=== PATIENT | female | born 1970 | race Caucasian/White ===

== ENCOUNTER → 2016-04-14 | Outpatient (CLI) | payer MEDICAID ==
--- NOTE | 2016-04-15 13:08 | MM ---
Reason for exam: screening (asymptomatic). Last mammogram was performed 3 years and 2 months ago. History: Patient has history of high-risk lesion on a previous biopsy at age 39. Family history of breast cancer in maternal aunt at age 50. High risk left breast needle localization of the left breast, May 09, 2011. High risk left breast needle localization of the left breast, May 09, 2011. High risk left mammotome panel of the left breast, April 26, 2011. High risk left mammotome panel of the left breast, April 26, 2011. Physical Findings: A clinical breast exam by your physician is recommended on an annual basis and results should be correlated with mammographic findings. MG 3D Screening Mammo W/Cad Bilateral CC and MLO view(s) were taken. Prior study comparison: February 04, 2013, CAD bilateral diagnostic mammogram. April 11, 2011, [facility] DIGITAL LEFT BREAST MAMMOGRAM w/CAD. March 31, 2011, bilateral digital screening mammo w/CAD. The breast tissue is heterogeneously dense. This may lower the sensitivity of mammography. Finding: There is a 4 mm round mass in the upper outer quadrant, anterior position of the right breast. Stable distortion left breast upper outer quadrant. New finding since February 04, 2013. ASSESSMENT: Incomplete: need additional imaging evaluation, BI-RAD 0 RECOMMENDATION: Ultrasound of the right breast. [facility] will attempt to contact patient to return for ultrasound.
== END | disposition home or self-care (01) ==
LOC: RADMAMWWP 15:11
PROVIDERS: ATTEND Family Medicine
DX: Z12.31 Encounter for screening mammogram for malignant neoplasm of breast (principal)
CPT/HCPCS: 77063; G0202

== ENCOUNTER → 2016-04-26 | Outpatient (CLI) | payer MEDICAID ==
--- NOTE | 2016-04-26 09:51 | USB ---
Reason for exam: additional evaluation requested from abnormal screening. History: Patient has history of high-risk lesion on a previous biopsy at age 39. Family history of breast cancer in maternal aunt at age 50. High risk left breast needle localization of the left breast, May 09, 2011. High risk left breast needle localization of the left breast, May 09, 2011. High risk left mammotome panel of the left breast, April 26, 2011. High risk left mammotome panel of the left breast, April 26, 2011. Physical Findings: Nurse did not find any significant physical abnormalities on exam. US Breast Workup Limited RT Right breast ultrasound demonstrates a 0.4 x 0.3 x 0.2cm oval, cystic lesion at 9 o'clock, a 0.3 x 0.2 x 0.1cm oval lesion too small to characterize at 10 o'clock and a 0.3 x 0.2 x 0.2cm oval lesion too small to characterize at 12 o'clock. All consistent with fibrocystic change. These results were verbally communicated with the patient and result sheet given to the patient on 04/26/16. ASSESSMENT: Benign, BI-RAD 2 RECOMMENDATION: Return to routine screening mammogram schedule for both breasts.
== END | disposition home or self-care (01) ==
LOC: RADUSWWP 08:20
PROVIDERS: ATTEND Family Medicine
DX: R92.8 Other abnormal and inconclusive findings on diagnostic imaging of breast (principal)

== ENCOUNTER 2016-08-27 11:24 | Emergency (ER) | payer MEDICAID, OTHER ==
[2016-08-27 11:31] VITALS: BP 100/51; PULSE 70; RESP 20; TEMP 98
--- NOTE | 2016-08-27 11:44 | ED ---
General Adult HPI - General Chief complaint: Extremity Injury, Upper Stated complaint: [facility]HS Rt arm injury Time Seen by Provider: 08/27/16 11:33 Source: patient, RN notes reviewed Mode of arrival: ambulatory Limitations: no limitations - History of Present Illness Initial comments: Patient is a 46-year-old female who presents emergency room today with a chief complaint of an injury to the right wrist. 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 She does admit that it's worse with flexion and extension of the distal right radius. She denies any other complaints or symptoms at this time. Patient denies any recent fever, chills, shortness of breath, chest pain, back pain, abdominal pain, nausea or vomiting, dysuria or hematuria, constipation or diarrhea, headaches or visual changes, or any other complaints. - Related Data Home Medications Medication Instructions Recorded Confirmed Ibuprofen [Motrin] 800 mg PO TID PRN 12/15/15 08/27/16 Amoxic-Pot Clav 875-125Mg 1 tab PO Q12HR 08/27/16 08/27/16 [Augmentin 875-125] Previous Rx's Medication Instructions Recorded Rizatriptan Benzoate [Maxalt] 5 mg PO Q2HR PRN #15 tablet 12/15/15 Naproxen [Naprosyn] 500 mg PO Q12HR #20 tab 08/27/16 Allergies Allergy/AdvReac Type Severity Reaction Status Date / Time adhesive Allergy BLISTERS Verified 08/27/16 12:17 nalbuphine HCl [From Nubain] AdvReac Severe TACHYCARDIA Verified 08/27/16 12:17 Review of Systems ROS Statement: Those systems with pertinent positive or pertinent negative responses have been documented in the HPI. ROS Other: All systems not noted in ROS Statement are negative. Past Medical History Past Medical History: Cancer, COPD, Neurologic Disorder Additional Past Medical History / Comment(s): LUNG CA (2009). MIGRAINES. BRONCHITIS. UTERINE FIBROIDS. SKIN CANCER (1997) History of Any Multi-Drug Resistant Organisms: MRSA Date of last positivie culture/infection: 08/23/11 MDRO Source:: RIGHT UPPER THIGH Past Surgical History: Adenoidectomy, Breast Surgery, Orthopedic Surgery, Tonsillectomy, Tubal Ligation, Uterine Ablation Additional Past Surgical History / Comment(s): LEFT PNEUMONECTOMY (2010). BIOPSY LEFT BREAST (2011). LEFT WRIST TENDON REPAIR. Past Anesthesia/Blood Transfusion Reactions: No Reported Reaction Past Psychological History: Anxiety Smoking Status: Former smoker Past Alcohol Use History: Occasional Past Drug Use History: None Reported - Past Family History Mother Family Medical History: No Reported History General Exam - General Exam Comments Initial Comments: General: The patient is awake and alert, in no distress, and does not appear acutely ill. Neck: The neck is supple, there is no tenderness or JVD. Cardiovascular: There is a regular rate and rhythm. No murmur, rub or gallop is appreciated. Respiratory: Lungs are clear to auscultation, respirations are non-labored, breath sounds are equal. No wheezes, stridor, rales, or rhonchi. Musculoskeletal: Normal appearance the right wrist no obvious deformity. Shows good range of motion all directions. Sensations intact with pulses equal bilaterally 2+. Strength 4/5 due to pain with flexion and extension at the right wrist. No bony tenderness down to the hand or the right elbow. Mild tenderness of the distal right radius. No snuffbox tenderness. Neurological: A&O x 3. CN II-XII intact, There are no obvious motor or sensory deficits. Coordination appears grossly intact. Speech is normal. Skin: Skin is warm and dry and no rashes or lesions are noted. Psychiatric: Normal mood and affect. Limitations: no limitations Course Vital Signs 08/27/16 11:29 Temperature 98.0 F Pulse Rate 70 Respiratory 20 Rate Blood Pressure 100/51 O2 Sat by Pulse 99 Oximetry Medical Decision Making - Medical Decision Making Patient examined at this time shows no signs of distress. X-rays are negative for any acute fracture dislocation. Results were discussed with the patient. Patient will be placed in Dario wrap advised not to sleep with a non-perfusing when she is up moving around for compression and to help with discomfort. Advised to follow-up with the family doctor or orthopedics in 7-10 days for repeat x-rays. Advised to ice elevate and use anti-inflammatories for pain. Disposition Clinical Impression: Wrist sprain Disposition: HOME SELF-CARE Condition: Good Instructions: Wrist Sprain (ED) Additional Instructions: Please use medication as discussed. Please follow-up with family doctor in the next 7-10 days of symptoms have not improved. Please return to emergency room if the symptoms increase or worsen or for any other concerns. Prescriptions: Naproxen [Naprosyn] 500 mg PO Q12HR #20 tab Referrals: Andrea Heath MD [Primary Care Provider] - 1-2 days Time of Disposition: 12:31
--- NOTE | 2016-08-27 12:18 | XR ---
EXAMINATION TYPE: XR wrist complete RT DATE OF EXAM: 08/27/2016 COMPARISON: NONE HISTORY: Pain TECHNIQUE: Four views submitted. FINDINGS: The osseous structures are intact. The joint spaces are preserved and there is no acute fracture or dislocation. IMPRESSION: 1. No definite acute fracture or dislocation if symptoms persist, follow-up study in 7 to 10 days wo uld be suggested .
[2016-08-27] MEDS ORDERED: NAPROXEN 250 MG TAB PO STA (12:21)
== END 2016-08-27 12:46 | disposition home or self-care (01) ==
LOC: EC 11:24
DX: S63.501A Unspecified sprain of right wrist, initial encounter (principal); Z87.891 Personal history of nicotine dependence; Z91.048 Other nonmedicinal substance allergy status; Z88.8 Allergy status to other drugs, medicaments and biological substances; Z85.828 Personal history of other malignant neoplasm of skin; Z85.118 Personal history of other malignant neoplasm of bronchus and lung; X50.9XXA Other and unspecified overexertion or strenuous movements or postures, initial encounter; Y92.69 Other specified industrial and construction area as the place of occurrence of the external cause; Y99.0 Civilian activity done for income or pay
CPT/HCPCS: 99283

== ENCOUNTER → 2017-11-09 | Outpatient (CLI) | payer MEDICAID ==
--- NOTE | 2017-11-09 18:41 | CT ---
EXAMINATION TYPE: CT brain w con DATE OF EXAM: 11/09/2017 COMPARISON: HISTORY: Recent headaches. Follow up for carcinoid tumor. CT DLP: 1003.1 mGycm Automated exposure control for dose reduction was used. CONTRAST: CT scan of the head is performed with IV Contrast, patient injected with 100ml mL of Isovue M300. FINDINGS: The ventricles and sulci appear normal. There is no mass effect nor midline shift. There is no sign o f intracranial hemorrhage. There is no pathologic enhancement. The calvarium appears intact. IMPRESSION: Negative CT scan of the brain. No change.
--- NOTE | 2017-11-10 08:13 | CT ---
EXAMINATION TYPE: CT ChestAbdPelvis w con DATE OF EXAM: 11/09/2017 COMPARISON: 01/08/2014 and 01/16/2013 HISTORY: Recent headaches. Follow up for carcinoid tumor. CT DLP: 565.9 mGycm CONTRAST: CT scan of the chest, abdomen and pelvis is performed with Oral Contrast and with IV Contrast, patien t injected with 100ml mL of Isovue M300. CT Chest: LUNGS: Left-sided pneumonectomy changes are stable. Mediastinal shift from right to left. Hyperinflat ion of the right lung. MEDIASTINUM: Thoracic aorta is of normal caliber. The heart is not enlarged. No evidence for media stinal mass or adenopathy. HILAR STRUCTURES: No evidence for mass. No hilar adenopathy is appreciated. OTHER: No significant abnormality. CONTRAST CT ABDOMEN AND PELVIS FINDINGS: LIVER/GB: No calcified gallstones. No space occupying hepatic lesion. Biliary tree is of normal ca liber. PANCREAS: No inflammation. No distinct mass. SPLEEN: No splenic enlargement. No lesion seen. ADRENALS: No nodule. No thickening. KIDNEYS/BLADDER: No hydronephrosis. No nephrolithiasis. No disctinct renal mass. BOWEL: Normal appendix. Normal bowel caliber. No inflammation. GENITAL ORGANS: No gross abnormality. LYMPH NODES: No greater than 1cm abdominal or pelvic lymph nodes are appreciated. AORTA: No significant abnormality. OSSEOUS STRUCTURES: No significant abnormality is seen. OTHER: No significant additional abnormality is seen. IMPRESSION: 1. Stable left-sided pneumonectomy change. 2. No evidence for recurrent or residual disease. No evidence for metastatic disease.
== END | disposition home or self-care (01) ==
LOC: RADCTMAIN 15:32
PROVIDERS: ATTEND Internal Medicine Hematology & Oncology
DX: C7A.098 Malignant carcinoid tumors of other sites (principal); R51 Headache; Z90.2 Acquired absence of lung [part of]
CPT/HCPCS: 70460; 71260; 74177; Q9967

== ENCOUNTER → 2018-05-15 | Outpatient (CLI) | payer MEDICAID ==
--- NOTE | 2018-05-15 20:55 | CT ---
EXAMINATION TYPE: CT abdomen pelvis wo con DATE OF EXAM: 05/15/2018 COMPARISON: HISTORY: Right upper quadrant pain x 4 days. History of lung cancer. CT DLP: 400.5 mGycm Automated exposure control for dose reduction was used. TECHNIQUE: Helical acquisition of images was performed from the lung bases through the pelvis. FINDINGS: Within the limitations of noncontrast CT the following observations are made: LUNG BASES: Postoperative changes noted. No significant abnormality is appreciated. LIVER/GB: No significant abnormality is appreciated. PANCREAS: No significant abnormality is seen. SPLEEN: No significant abnormality is seen. ADRENALS: No significant abnormality is seen. KIDNEYS: No significant abnormality is seen. FREE AIR: No free air is visualized RETROPERITONEAL ADENOPATHY: None visualized REPRODUCTIVE ORGANS: No significant abnormality is seen URINARY BLADDER: No significant abnormality is seen. PELVIC ADENOPATHY: None visualized. OSSEOUS STRUCTURES: No significant abnormality is seen. BOWEL: There is no bowel obstruction. However, excessive pancolonic stool volume is noted. IMPRESSION: CONSTIPATION; NO OTHER FINDINGS.
== END | disposition home or self-care (01) ==
LOC: LABMAIN 17:59
PROVIDERS: ATTEND Family Medicine
DX: K59.00 Constipation, unspecified (principal)
CPT/HCPCS: 74176

== ENCOUNTER 2019-02-16 10:30 | Inpatient (IN) | payer MEDICAID ==
[2019-02-16] MEDS ORDERED: methylPREDNISolone SOD SUCCI 125 MG/2 ML VIAL IV STA (11:11)
[2019-02-16] MEDS ORDERED: SODIUM CHLORIDE 0.9% 1,000 ML IV STA (11:11)
[2019-02-16] MEDS ORDERED: IPRATROPIUM-ALBUTEROL 3 ML NEB INHALATION STA ×3 (11:11→14:01)
--- NOTE | 2019-02-16 11:18 | ED ---
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 She presents today with complaints of increasing shortness of breath and exertional dyspnea she has a cough with sometimes clear sometimes green sometimes yellow phlegm. No overt fevers chills or sweats no chest pain. Her medications are not helping. MD Complaint: shortness of breath, cough - Related Data Home Medications Medication Instructions Recorded Confirmed Ibuprofen [Motrin] 800 mg PO TID PRN 12/15/15 08/27/16 Amoxic-Pot Clav 875-125Mg 1 tab PO Q12HR 08/27/16 08/27/16 [Augmentin 875-125] Previous Rx's Medication Instructions Recorded Rizatriptan Benzoate [Maxalt] 5 mg PO Q2HR PRN #15 tablet 12/15/15 Naproxen [Naprosyn] 500 mg PO Q12HR #20 tab 08/27/16 Allergies Allergy/AdvReac Type Severity Reaction Status Date / Time adhesive Allergy BLISTERS Verified 02/16/19 10:37 nalbuphine HCl [From Nubain] AdvReac Severe TACHYCARDIA Verified 02/16/19 10:37 Review of Systems ROS Statement: Those systems with pertinent positive or pertinent negative responses have been documented in the HPI. ROS Other: All systems not noted in ROS Statement are negative. Past Medical History Past Medical History: Cancer, COPD, Neurologic Disorder Additional Past Medical History / Comment(s): LUNG CA (2009). MIGRAINES. BRONCHITIS. UTERINE FIBROIDS. SKIN CANCER (1997) History of Any Multi-Drug Resistant Organisms: MRSA Date of last positivie culture/infection: 08/23/11 MDRO Source:: RIGHT UPPER THIGH Past Surgical History: Adenoidectomy, Breast Surgery, Orthopedic Surgery, Tonsillectomy, Tubal Ligation, Uterine Ablation Additional Past Surgical History / Comment(s): LEFT PNEUMONECTOMY (2009). BIOPSY LEFT BREAST (2010). LEFT WRIST TENDON REPAIR. Past Anesthesia/Blood Transfusion Reactions: No Reported Reaction Past Psychological History: Anxiety Smoking Status: Former smoker Past Alcohol Use History: Occasional Past Drug Use History: None Reported - Past Family History Mother Family Medical History: No Reported History General Exam - General Exam Comments Initial Comments: This is a well-developed well-nourished awake alert oriented 3 female Limitations: no limitations General appearance: alert, anxious, in distress Head exam: Present: atraumatic, normocephalic, normal inspection Eye exam: Present: normal appearance, PERRL, EOMI. Absent: scleral icterus, conjunctival injection, periorbital swelling ENT exam: Present: normal exam, mucous membranes moist Neck exam: Present: normal inspection, full ROM, other (No stridor JVD or bruits). Absent: tenderness, meningismus, lymphadenopathy Respiratory exam: Present: wheezes, accessory muscle use, decreased breath sounds. Absent: respiratory distress, rales, rhonchi, stridor Cardiovascular Exam: Present: regular rate, normal rhythm, normal heart sounds. Absent: systolic murmur, diastolic murmur, rubs, gallop, clicks GI/Abdominal exam: Present: soft, normal bowel sounds. Absent: distended, tenderness, guarding, rebound, rigid Extremities exam: Present: normal inspection, full ROM, normal capillary refill. Absent: tenderness, pedal edema, joint swelling, calf tenderness Back exam: Present: normal inspection Neurological exam: Present: alert, oriented X3, CN II-XII intact Psychiatric exam: Present: normal affect, normal mood Skin exam: Present: warm, dry, intact, normal color. Absent: rash Course Vital Signs 02/16/19 02/16/19 02/16/19 10:37 11:22 11:32 Temperature 97.9 F Pulse Rate 86 75 79 Respiratory 18 Rate Blood Pressure 99/68 O2 Sat by Pulse 96 Oximetry 02/16/19 02/16/19 02/16/19 12:00 12:30 13:00 Temperature Pulse Rate 60 60 71 Respiratory 18 18 18 Rate Blood Pressure 103/63 98/64 100/66 O2 Sat by Pulse 98 94 L 97 Oximetry 02/16/19 02/16/19 13:48 14:00 Temperature Pulse Rate 86 81 Respiratory Rate Blood Pressure O2 Sat by Pulse Oximetry - Reevaluation(s) Reevaluation #1: 02/16/19 14:04 Reevaluation patient reveals no improvement thus far. Medical Decision Making - Medical Decision Making I did reevaluate patient several more occasions no improvement is noted. Patient will be requiring inpatient treatment for refractory COPD. I did discuss case with the patient as well as with Dr. Downey. Dr. Julien will be consulted. - Lab Data Result diagrams: 02/16/19 11:25 02/16/19 11:25 Lab Results 02/16/19 02/16/19 02/16/19 Range/Units 11:25 11:25 11:25 WBC 7.6 (3.8-10.6) k/uL RBC 4.18 (3.80-5.40) m/uL Hgb 14.0 (11.4-16.0) gm/dL Hct 39.4 (34.0-46.0) % MCV 94.3 (80.0-100.0) fL MCH 33.4 (25.0-35.0) pg MCHC 35.5 (31.0-37.0) g/dL RDW 12.8 (11.5-15.5) % Plt Count 236 (150-450) k/uL Neutrophils % 73 % Lymphocytes % 20 % Monocytes % 4 % Eosinophils % 2 % Basophils % 0 % Neutrophils # 5.5 (1.3-7.7) k/uL Lymphocytes # 1.6 (1.0-4.8) k/uL Monocytes # 0.3 (0-1.0) k/uL Eosinophils # 0.1 (0-0.7) k/uL Basophils # 0.0 (0-0.2) k/uL PT 10.2 (9.0-12.0) sec INR 0.9 (<1.2) APTT 25.2 (22.0-30.0) sec Sodium 142 (137-145) mmol/L Potassium 4.0 (3.5-5.1) mmol/L Chloride 107 (98-107) mmol/L Carbon Dioxide 27 (22-30) mmol/L Anion Gap 8 mmol/L BUN 7 (7-17) mg/dL Creatinine 0.74 (0.52-1.04) mg/dL Est GFR (CKD-EPI)AfAm >90 (>60 ml/min/1.73 sqM) Est GFR (CKD-EPI)NonAf >90 (>60 ml/min/1.73 sqM) Glucose 96 (74-99) mg/dL Calcium 10.1 (8.4-10.2) mg/dL Magnesium 2.1 (1.6-2.3) mg/dL Total Bilirubin 0.5 (0.2-1.3) mg/dL AST 16 (14-36) U/L ALT 20 (9-52) U/L Alkaline Phosphatase 64 (38-126) U/L Creatine Kinase 30 (30-135) U/L Troponin I (0.000-0.034) ng/mL NT-Pro-B Natriuret Pep pg/mL Total Protein 7.7 (6.3-8.2) g/dL Albumin 4.4 (3.5-5.0) g/dL 02/16/19 02/16/19 Range/Units 11:25 11:25 WBC (3.8-10.6) k/uL RBC (3.80-5.40) m/uL Hgb (11.4-16.0) gm/dL Hct (34.0-46.0) % MCV (80.0-100.0) fL MCH (25.0-35.0) pg MCHC (31.0-37.0) g/dL RDW (11.5-15.5) % Plt Count (150-450) k/uL Neutrophils % % Lymphocytes % % Monocytes % % Eosinophils % % Basophils % % Neutrophils # (1.3-7.7) k/uL Lymphocytes # (1.0-4.8) k/uL Monocytes # (0-1.0) k/uL Eosinophils # (0-0.7) k/uL Basophils # (0-0.2) k/uL PT (9.0-12.0) sec INR (<1.2) APTT (22.0-30.0) sec Sodium (137-145) mmol/L Potassium (3.5-5.1) mmol/L Chloride (98-107) mmol/L Carbon Dioxide (22-30) mmol/L Anion Gap mmol/L BUN (7-17) mg/dL Creatinine (0.52-1.04) mg/dL Est GFR (CKD-EPI)AfAm (>60 ml/min/1.73 sqM) Est GFR (CKD-EPI)NonAf (>60 ml/min/1.73 sqM) Glucose (74-99) mg/dL Calcium (8.4-10.2) mg/dL Magnesium (1.6-2.3) mg/dL Total Bilirubin (0.2-1.3) mg/dL AST (14-36) U/L ALT (9-52) U/L Alkaline Phosphatase (38-126) U/L Creatine Kinase (30-135) U/L Troponin I <0.012 (0.000-0.034) ng/mL NT-Pro-B Natriuret Pep 159 pg/mL Total Protein (6.3-8.2) g/dL Albumin (3.5-5.0) g/dL - EKG Data -: EKG Interpreted by Me EKG shows normal: sinus rhythm EKG Comments: Sinus rhythm of 79. Interval 118 QRS duration 90 QT since QTC 34/440 right word axis nonspecific T-wave configuration - Radiology Data Radiology results: report reviewed (Imaging reveals no evidence of focal infiltrates. Postsurgical changes are consistent with a pneumonectomy are noted), image reviewed Critical Care Time Critical Care Time: Yes Critical Care Time: 36 minutes of critical care time which includes initial presentation with history physical labs x-rays review of old charting was available multiple re- evaluations the patient discussed with the patient regarding the findings discussion with the admitting physician admission orders and documentation of the above Disposition Clinical Impression: Acute exacerbation of chronic obstructive pulmonary disease, Acute respiratory distress syndrome in adult, Failure of outpatient treatment, History of pneumonectomy Disposition: ADMITTED IP TO THIS HOSP Condition: Fair Referrals: Andrea Heath MD [Primary Care Provider] - 1-2 days
[2019-02-16 11:48] LABS: Basophils % (A) 0 %; Eosinophils # (A) 0.1 k/uL (0-0.7); Eosinophils % (A) 2 %; HCT 39.4 % (34.0-46.0); Lymphocytes # (A) 1.6 k/uL (1.0-4.8); Lymphocytes % (A) 20 %; MCH 33.4 pg (25.0-35.0); MCHC 35.5 g/dL (31.0-37.0); MCV 94.3 fL (80.0-100.0); Mean Platelet Volume 7.3; Monocytes # (A) 0.3 k/uL (0-1.0); Monocytes % (A) 4 %; Neutrophils # (A) 5.5 k/uL (1.3-7.7); Neutrophils % (A) 73 %; Platelet Count 236 k/uL (150-450); RBC 4.18 m/uL (3.80-5.40); RDW 12.8 % (11.5-15.5); WBC 7.6 k/uL (3.8-10.6)
[2019-02-16 11:55] LABS: INR 0.9 (<1.2); Partial Thromboplastin Time 25.2 sec (22.0-30.0); Prothrombin Time 10.2 sec (9.0-12.0)
--- NOTE | 2019-02-16 12:09 | XR ---
EXAMINATION TYPE: XR chest 2V DATE OF EXAM: 02/16/2019 HISTORY: difficulty breathing. REFERENCE: Previous study dated 12/24/2015. FINDINGS: There is been a previous left pneumonectomy. Mediastinal structures are displaced towards t he left. There continues to be some aeration in the left upper lobe. This has increased from previous . The right lung is clear. IMPRESSION: 1. STATUS POST LEFT PNEUMONECTOMY. 2. 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
[2019-02-16 12:50] LABS: ALT 20 U/L (9-52); AST 16 U/L (14-36); African American GFR (CKD) >90 (>60 ml/min/1.73 sqM); Albumin 4.4 g/dL (3.5-5.0); Alkaline Phosphatase 64 U/L (38-126); Anion Gap 8 mmol/L; Blood Urea Nitrogen 7 mg/dL (7-17); Calcium 10.1 mg/dL (8.4-10.2); Carbon Dioxide 27 mmol/L (22-30); Chloride 107 mmol/L (98-107); Creatine Kinase 30 U/L (30-135); Glucose 96 mg/dL (74-99); Magnesium 2.1 mg/dL (1.6-2.3); Non-African American GFR(CKD) >90 (>60 ml/min/1.73 sqM); Sodium 142 mmol/L (137-145); Total Bilirubin 0.5 mg/dL (0.2-1.3); Total Protein 7.7 g/dL (6.3-8.2)
[2019-02-16] MEDS ORDERED: IBUPROFEN 800 MG TAB PO PRN (14:10)
[2019-02-16] MEDS ORDERED: SUMAtriptan SUCCINATE 50 MG TAB PO PRN (15:24)
--- NOTE | 2019-02-16 16:12 | P.HPIM ---
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 The patient reports complaints of URI symptoms such as chest congestion and runny nose and difficulty breathing 2 weeks ago for which she was seen in the clinic in [place] she was an IM shot of antibiotics and a Medrol Dosepak and likely a Z-David, the patient reported completing the course and initially felt better but then 2 days ago began having difficulty breathing again, she reports a intimately productive cough with yellow sputum, she reports increasing wheezes, she reports using her nebulizer several times yesterday without any improvement and also used her rescue inhaler this morning prior to going to work. 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 The patient reports being up-to-date with her flu shot and pneumonia vaccine In the ER showed a comprehensive workup, CBC CMP were largely unremarkable, chest x-ray showed increased aeration of the left hemothorax. EKG showed sinus mechanism with nonspecific T-wave abnormality. She was given 3 breathing treatments a loading dose of IV Solu-Medrol and then recommended for admission Review of Systems Pertinent positives per HPI, all other review of systems are otherwise negative Past Medical History Past Medical History: Cancer, COPD, Neurologic Disorder Additional Past Medical History / Comment(s): LUNG CA (2009). MIGRAINES. BRONCHITIS. UTERINE FIBROIDS. SKIN CANCER (1997) History of Any Multi-Drug Resistant Organisms: MRSA Date of last positivie culture/infection: 08/23/11 MDRO Source:: RIGHT UPPER THIGH Past Surgical History: Adenoidectomy, Breast Surgery, Orthopedic Surgery, Tonsillectomy, Tubal Ligation, Uterine Ablation Additional Past Surgical History / Comment(s): LEFT PNEUMONECTOMY (2009). BIOPSY LEFT BREAST (2010). LEFT WRIST TENDON REPAIR. Past Anesthesia/Blood Transfusion Reactions: No Reported Reaction Past Psychological History: Anxiety Smoking Status: Former smoker Past Alcohol Use History: Occasional Past Drug Use History: None Reported - Past Family History Mother Family Medical History: No Reported History Medications and Allergies Home Medications Medication Instructions Recorded Confirmed Type Budesonide/Formoterol Fumarate 2 puff INHALATION RT-BID 02/16/19 02/16/19 History [Symbicort 160-4.5 Mcg Inhaler] Ibuprofen [Motrin Ib] 800 mg PO Q6H PRN 02/16/19 02/16/19 History Rizatriptan Odt [Maxalt LOAD HAUL DUMP OPERATOR] 10 mg PO DAILY PRN 02/16/19 02/16/19 History Allergies Allergy/AdvReac Type Severity Reaction Status Date / Time adhesive Allergy BLISTERS Verified 02/16/19 14:51 nalbuphine HCl [From Nubain] AdvReac Severe TACHYCARDIA Verified 02/16/19 14:51 Physical Exam Vitals: Vital Signs Temp Pulse Resp BP Pulse Ox 02/16/19 14:30 98.0 F 84 18 100/61 99 02/16/19 14:09 75 02/16/19 14:00 83 18 91/63 99 02/16/19 13:48 86 02/16/19 13:30 72 18 98/71 97 02/16/19 13:00 71 18 100/66 97 02/16/19 12:30 60 18 98/64 94 L 02/16/19 12:00 60 18 103/63 98 02/16/19 11:32 79 02/16/19 11:22 75 02/16/19 10:37 97.9 F 86 18 99/68 96 Intake and Output 02/16/19 02/16/19 02/16/19 06:59 14:59 22:59 Other: Weight 61.235 kg Constitutional: Mild respiratory distress, conversant, pleasant Eyes: Anicteric sclerae, moist conjunctiva, no lid-lag, PERRLA ENMT: NC/AT,Oropharynx clear, no erythema, exudates Neck:Supple, FROM, no masses, or JVD, No carotid bruits; No thyromegaly Lungs: Diffusely wheezy, poor aeration, mild conversational dyspnea, normal saturations on room air Cardiovascular: Heart regular in rate and rhythm, No murmurs, gallops, or rubs no peripheral edema Abdominal: Soft Nontender, nom distended, no guarding, no rebound or rigidity, Normoactive bowel sounds No hepatomegaly, No splenomegaly, No palpable mass No abdominal wall hernia noted Skin: Normal temperature, tone, texture, turgor, No induration No subcutaneous nodules, No rash, lesions, No ulcers Extremities:No digital cyanosis No clubbing, Pedal pulses intact and symmetrical Radial pulses intact and symmetrical Normal gait and station, No calf tenderness Psychiatric: Alert and oriented to person, place and time, Appropriate affect Intact judgement Neuro: Muscles Strength 5/5 in all 4 extremities, Sensation to light touch grossly present throughout, Cranial nerves II-XII grossly intact. No focal sensory deficits Results CBC & Chem 7: 02/16/19 11:25 02/16/19 11:25 Assessment and Plan Assessment: Acute COPD exacerbation with asthma History of left lung pneumonectomy for carcinoid tumor History of tobacco smoking Plan: The patient is admitted anticipated greater than 2 midnight stay with acute COPD exacerbation with asthma with previous failed outpatient therapy and nonresponse today in the ER due to likely precipitated by viral URI and possible tracheo bronchitis, workup with chest x-ray negative for any suggestion of infiltrates or pneumonia, labs are also normal, she started on systemic steroids with Solu- Medrol, scheduled and PRn bronchodilator DuoNeb breathing treatments, Symbicort, Perforomist and Mucinex with plans for pulmonary consultation. Continue to monitor her clinical course CODE STATUS : Full code Anticipated discharge : 2-3 days
[2019-02-16] MEDS: IPRATROPIUM-ALBUTEROL 3 ML NEB INHALATION SCH ×2 (17:18→21:09)
[2019-02-16] MEDS: methylPREDNISolone SOD SUCCI 125 MG/2 ML VIAL IV SCH ×2 (18:02→23:47)
[2019-02-16] MEDS: SODIUM CHLORIDE 0.9% 1,000 ML IV SCH ×2 (18:03→23:48)
[2019-02-16] MEDS: NAPROXEN 250 MG TAB PO SCH (18:07)
[2019-02-16] MEDS: AMOXIC-POT CLAV 875-125MG 1 EACH TAB PO SCH (18:08)
[2019-02-16] MEDS: FORMOTEROL FUMARATE 20 MCG/2 ML NEBU INHALATION SCH (21:10)
[2019-02-16] MEDS: SYMBICORT 160-4.5 MCG INHALER INHALATION SCH (21:10)
[2019-02-17] MEDS: IPRATROPIUM-ALBUTEROL 3 ML NEB INHALATION SCH ×6 (00:22→19:48)
[2019-02-17] MEDS: methylPREDNISolone SOD SUCCI 125 MG/2 ML VIAL IV SCH ×4 (05:23→23:53)
[2019-02-17] MEDS: IBUPROFEN 800 MG TAB PO PRN ×2 (05:24→17:13)
[2019-02-17] MEDS: SYMBICORT 160-4.5 MCG INHALER INHALATION SCH ×2 (08:25→19:48)
[2019-02-17] MEDS: FORMOTEROL FUMARATE 20 MCG/2 ML NEBU INHALATION SCH ×2 (08:29→19:48)
[2019-02-17] MEDS: AMOXIC-POT CLAV 875-125MG 1 EACH TAB PO SCH ×2 (09:04→21:42)
--- NOTE | 2019-02-17 11:31 | P.PN ---
Subjective Progress Note Date: 02/17/19 Patient seen and examined at bedside reporting that she coughed majority of the night and says that her breathing is a slightly improved but she continues to wheeze, denies any chest pain, no acute events overnight Objective - Vital Signs Vital signs: Vital Signs Temp 98.5 F 02/17/19 04:49 Pulse 93 02/17/19 08:43 Resp 18 02/17/19 04:49 BP 101/60 02/17/19 04:49 Pulse Ox 95 02/17/19 04:49 Intake & Output 02/16/19 02/17/19 02/17/19 18:59 06:59 18:59 Intake Total 800 Output Total 2 Balance 798 Weight 61.235 kg Intake: IV 800 Sodium Chloride 0.9% 1, 800 000 ml @ 100 mls/hr IV . Q10H [facility] Rx#:[id number] Output: Urine 2 Other: Voiding Method Toilet Toilet # Voids 2 # Bowel Movements 1 - Exam Constitutional: Mild respiratory distress, conversant, pleasant Eyes: Anicteric sclerae, moist conjunctiva, no lid-lag, PERRLA ENMT: NC/AT,Oropharynx clear, no erythema, exudates Neck:Supple, FROM, no masses, or JVD, No carotid bruits; No thyromegaly Lungs: Diffusely wheezy, poor aeration, mild conversational dyspnea, normal saturations on room air Cardiovascular: Heart regular in rate and rhythm, No murmurs, gallops, or rubs no peripheral edema Abdominal: Soft Nontender, nom distended, no guarding, no rebound or rigidity, Normoactive bowel sounds No hepatomegaly, No splenomegaly, No palpable mass No abdominal wall hernia noted Skin: Normal temperature, tone, texture, turgor, No induration No subcutaneous nodules, No rash, lesions, No ulcers Extremities:No digital cyanosis No clubbing, Pedal pulses intact and symmetrical Radial pulses intact and symmetrical Normal gait and station, No calf tenderness Psychiatric: Alert and oriented to person, place and time, Appropriate affect Intact judgement Neuro: Muscles Strength 5/5 in all 4 extremities, Sensation to light touch grossly present throughout, Cranial nerves II-XII grossly intact. No focal sensory deficits - Labs CBC & Chem 7: 02/16/19 11:25 02/16/19 11:25 Assessment and Plan Assessment: Acute COPD exacerbation with asthma * precipitated by viral URI and possible tracheobronchitis * workup with chest x-ray negative for any suggestion of infiltrates or pneumonia * labs are also normal * continued on systemic steroids with Solu-Medrol, scheduled and PRn bronchodilator DuoNeb breathing treatments, Symbicort, Perforomist and Mucinex * plans for pulmonary consultation. History of left lung pneumonectomy for carcinoid tumor History of tobacco smoking
--- NOTE | 2019-02-17 11:55 | P.CNPUL ---
History of Present Illness Consult date: 02/17/19 Reason for consult: dyspnea, cough, COPD Chief complaint: Acute exacerbation of COPD History of present illness: This is a 48-year-old white female patient of Dr. Heath, with past medical history of left pneumonectomy more than continues to go for history of carcinoid tumor of the lung, COPD/asthmatic bronchitis, patient is maintained on Proventil, Symbicort and DuoNeb, former smoker, who follows with Dr. Wilson in the pulmonary clinic. Patient presented today emergency department on 02/16/2019 with complaints of cough, and patient at times is able to clear small amount of green colored sputum, for the most part she is not able to clear any sputum, wheezing. Denied any fever or chills, patient had recently received a flu vaccine 3 weeks ago, and she states shortly after that she started getting sick, and she saw Dr. Heath in the office and was treated with IM steroids, steroid taper and antibiotics in the form of Zithromax. After she completed her treatment she was seemingly getting better however in the last few days she is feeling worse again. Feels congested, short of breath and wheezy. Her has also been sick with a prolonged upper respiratory infection and sinusitis. Chest x-ray was completed in the emergency department showing chronic changes of left pneumonectomy, and increased aeration of the left hemithorax. The right lung is clear. Labs have been reviewed, CBC, coagulation profile, CMP were all within normal limits, troponin was negative 1, proBNP was 159. Patient states she had been checked for the influenza and strep throat and Dr. Hetah's office and everything was negative. She is afebrile, she is 95% on room air, hemodynamically stable, she's been started on Augmentin, Mucinex, cough syrup, nebulized treatments Review of Systems All systems: negative Constitutional: Denies chills, Denies fever Eyes: denies blurred vision, denies pain Ears, nose, mouth and throat: Denies headache, Denies sore throat Cardiovascular: Denies chest pain, Denies shortness of breath Respiratory: Reports congestion, Reports cough with sputum, Reports dyspnea, Reports wheezing, Denies cough Gastrointestinal: Denies abdominal pain, Denies diarrhea, Denies nausea, Denies vomiting Genitourinary: Denies dysuria, Denies hematuria Musculoskeletal: Denies myalgias Integumentary: Denies pruritus, Denies rash Neurological: Denies numbness, Denies weakness Psychiatric: Denies anxiety, Denies depression Endocrine: Denies fatigue, Denies weight change Past Medical History Past Medical History: Cancer, COPD, Neurologic Disorder Additional Past Medical History / Comment(s): LUNG CA (2009). MIGRAINES. BRONCHITIS. UTERINE FIBROIDS. SKIN CANCER (1997) History of Any Multi-Drug Resistant Organisms: MRSA Date of last positivie culture/infection: 08/23/11 MDRO Source:: RIGHT UPPER THIGH Past Surgical History: Adenoidectomy, Breast Surgery, Orthopedic Surgery, Tonsillectomy, Tubal Ligation, Uterine Ablation Additional Past Surgical History / Comment(s): LEFT PNEUMONECTOMY (2009). BIOPSY LEFT BREAST (2010). LEFT WRIST TENDON REPAIR. Past Anesthesia/Blood Transfusion Reactions: No Reported Reaction Past Psychological History: Anxiety Smoking Status: Former smoker Past Alcohol Use History: Occasional Past Drug Use History: None Reported - Past Family History Mother Family Medical History: No Reported History Father Family Medical History: No Reported History Medications and Allergies Home Medications Medication Instructions Recorded Confirmed Type Budesonide/Formoterol Fumarate 2 puff INHALATION RT-BID 02/16/19 02/16/19 History [Symbicort 160-4.5 Mcg Inhaler] Ibuprofen [Motrin Ib] 800 mg PO Q6H PRN 02/16/19 02/16/19 History Rizatriptan Odt [Maxalt SWITCHBOARD INSPECTOR] 10 mg PO DAILY PRN 02/16/19 02/16/19 History Allergies Allergy/AdvReac Type Severity Reaction Status Date / Time adhesive Allergy BLISTERS Verified 02/16/19 14:51 nalbuphine HCl [From Nubain] AdvReac Severe TACHYCARDIA Verified 02/16/19 14:51 Physical Exam Vitals: Vital Signs Temp Pulse Pulse Resp BP BP Pulse Ox 02/17/19 11:30 82 02/17/19 08:43 93 02/17/19 08:30 88 89 18 02/17/19 04:49 98.5 F 89 18 101/60 95 02/17/19 00:28 96 02/17/19 00:22 88 02/16/19 21:26 80 02/16/19 21:10 78 02/16/19 20:56 97.9 F 83 18 100/51 96 02/16/19 17:31 80 02/16/19 17:22 78 02/16/19 17:18 95 02/16/19 16:40 71 17 02/16/19 15:31 98.9 F 71 17 95/58 96 02/16/19 14:30 98.0 F 84 18 100/61 99 02/16/19 14:09 75 02/16/19 14:00 83 18 91/63 99 02/16/19 13:48 86 02/16/19 13:30 72 18 98/71 97 02/16/19 13:00 71 18 100/66 97 02/16/19 12:30 60 18 98/64 94 L 02/16/19 12:00 60 18 103/63 98 Intake and Output 02/16/19 02/17/19 02/17/19 22:59 06:59 14:59 Intake Total 800 Output Total 2 2 Balance 798 -2 Intake: IV 800 Sodium Chloride 0.9% 1, 800 000 ml @ 100 mls/hr IV . Q10H [facility] Rx#:[id number] Output: Urine 2 2 Other: Voiding Method Toilet Toilet # Voids 2 2 # Bowel Movements 1 GENERAL EXAM: Alert, very pleasant, 48-year-old white female, on room air pulse ox of 95% comfortable in no apparent distress. HEAD: Normocephalic/atraumatic. EYES: Normal reaction of pupils, equal size. Conjunctiva pink, sclera white. NOSE: Clear with pink turbinates. THROAT: No erythema or exudates. NECK: No masses, no JVD, no thyroid enlargement, no adenopathy. CHEST: No chest wall deformity. Symmetrical expansion. LUNGS: Equal air entry with diminished breath sounds, and wheezes on the right CVS: Regular rate and rhythm, normal S1 and S2, no gallops, no murmurs, no rubs ABDOMEN: Soft, nontender. No hepatosplenomegaly, normal bowel sounds, no guarding or rigidity. EXTREMITIES: No clubbing, no edema, no cyanosis, 2+ pulses and upper and lower extremities. MUSCULOSKELETAL: Muscle strength and tone normal. SPINE: No scoliosis or deformity SKIN: No rashes CENTRAL NERVOUS SYSTEM: Alert and oriented -3. No focal deficits, tone is normal in all 4 extremities. PSYCHIATRIC: Alert and oriented -3. Appropriate affect. Intact judgment and insight. Results - Laboratory Findings CBC and BMP: 02/16/19 11:25 02/16/19 11:25 PT/INR, D-dimer PT 10.2 sec (9.0-12.0) 02/16/19 11:25 INR 0.9 (<1.2) 02/16/19 11:25 - Diagnostic Findings Chest x-ray: report reviewed, image reviewed Assessment and Plan Plan: Assessment: #1. Acute exacerbation of chronic obstructive pulmonary disease/asthmatic bronchitis, with failure of outpatient treatment #2. History of carcinoid tumor of the left lung status post left pneumonectomy more than 10 years ago, patient follows with Dr. Townsend #3. Migraine cephalgia #4. Former smoker #5. Anxiety #6. History of MRSA infection Plan: Continue current treatments, continue IV steroids, nebulized broncho-dilators, Symbicort and empiric antibiotics. Cough suppressants have been added, was Mucinex, patient's chest x-ray has been reviewed showing no acute process in the right remaining lung, and chronic changes of left pneumonectomy. We'll continue to follow I performed a history & physical examination of the patient and discussed their management with my nurse practitioner, Ngoc Parker. I reviewed the nurse practitioner's note and agree with the documented findings and plan of care. Lung sounds are positive for diffuse expiratory wheezes. The findings and the impression was discussed with the patient. I attest to the documentation by the nurse practitioner. Time with Patient: Greater than 30
[2019-02-17] MEDS: NAPROXEN 250 MG TAB PO SCH ×2 (12:06→21:41)
[2019-02-17] MEDS: guaiFENesin 600 MG TABLET.ER PO SCH ×2 (12:32→21:41)
[2019-02-17] MEDS: SODIUM CHLORIDE 0.9% 1,000 ML IV SCH ×2 (12:32→21:47)
[2019-02-17] MEDS ORDERED: RX INFO: IV CONTRAST WAS GIVEN 1 EACH MISC MISCELLANE PRN (13:15)
--- NOTE | 2019-02-17 15:02 | CT ---
EXAMINATION TYPE: CT chest w con DATE OF EXAM: 02/17/2019 COMPARISON: CT chest 11/09/2017 HISTORY: Wheezing, Hx of left pneumonectomy CT DLP: 412 mGycm Automated exposure control for dose reduction was used. CONTRAST: CT scan of the chest is performed with IV Contrast, patient injected with 100 mL of Isovue 300. FINDINGS: Postsurgical changes of left pneumonectomy; crescentic of soft tissue along the posterior margin of t he left thoracic cavity does not appear infiltrative, likely postoperative. Surgical clips at the lef t hilus. Resultant left thoracic cavity volume loss with left-sided positioning of mediastinal struct ures and hyperinflation of the right lung, extending across midline to fill the anterior left chest c avity. No consolidations within the right lung. No pleural effusion or pneumothorax. Proximal right t racheobronchial tree is patent. The heart is not enlarged. No pericardial effusion. No thoracic aortic aneurysm nor significant ather osclerotic changes. No mediastinal lymphadenopathy. Heterogenous appearance of the thyroid gland with subcentimeter left thyroid lobe nodule. No aggressive osseous lesion. Mild-moderate degenerative changes of the thoracic spine. IMPRESSION: Postsurgical changes of left pneumonectomy without significant interval change from October 2017 ayden rison. The hyperinflated right lung is clear.
[2019-02-17] MEDS: guaiFENesin-Coden 100-10MG/5ML 10 ML CUP PO PRN (21:42)
[2019-02-18] MEDS: IPRATROPIUM-ALBUTEROL 3 ML NEB INHALATION SCH ×6 (03:39→21:57)
[2019-02-18] MEDS: methylPREDNISolone SOD SUCCI 125 MG/2 ML VIAL IV SCH ×2 (06:14→11:28)
[2019-02-18] MEDS: SODIUM CHLORIDE 0.9% 1,000 ML IV SCH ×2 (06:16→17:38)
[2019-02-18] MEDS: FORMOTEROL FUMARATE 20 MCG/2 ML NEBU INHALATION SCH ×2 (07:15→21:56)
[2019-02-18] MEDS: SYMBICORT 160-4.5 MCG INHALER INHALATION SCH ×2 (07:15→21:56)
[2019-02-18] MEDS: NAPROXEN 250 MG TAB PO SCH ×3 (09:09→20:05)
[2019-02-18] MEDS: AMOXIC-POT CLAV 875-125MG 1 EACH TAB PO SCH ×2 (09:09→20:05)
[2019-02-18] MEDS: guaiFENesin 600 MG TABLET.ER PO SCH ×2 (09:16→20:05)
[2019-02-18] MEDS: IBUPROFEN 800 MG TAB PO PRN (09:21)
--- NOTE | 2019-02-18 14:28 | P.PN ---
Subjective Progress Note Date: 02/18/19 Principal diagnosis: Acute exacerbation of COPD This is a 48-year-old white female patient of Dr. Heath, with past medical history of left pneumonectomy more than continues to go for history of carcinoid tumor of the lung, COPD/asthmatic bronchitis, patient is maintained on Pr oventil, Symbicort and DuoNeb, former smoker, who follows with Dr. Wilson in the pulmonary clinic. Patient presented today emergency department on 02/16/2019 with complaints of cough, and patient at times is able to clear small amount of green colored sputum, for the most part she is not able to clear any sputum, wheezing. Denied any fever or chills, patient had recently received a flu vaccine 3 weeks ago, and she states shortly after that she started getting sick, and she saw Dr. Heath in the office and was treated with IM steroids, steroid taper and antibiotics in the form of Zithromax. After she completed her treatment she was seemingly getting better however in the last few days she is feeling worse again. Feels congested, short of breath and wheezy. Her has also been sick with a prolonged upper respiratory infection and sinusitis. Chest x-ray was completed in the emergency department showing chronic changes of left pneumonectomy, and increased aeration of the left hemithorax. The right lung is clear. Labs have been reviewed, CBC, coagulation profile, CMP were all within normal limits, troponin was negative 1, proBNP was 159. Patient states she had been checked for the influenza and strep throat and Dr. Heath's office and everything was negative. She is afebrile, she is 95% on room air, hemodynamically stable, she's been started on Augmentin, Mucinex, cough syrup, nebulized treatments On 02/18/2019 patient seen in follow-up. No significant improvement, still wheezy, still coughing, occasionally able to bring up some sputum, for the most part her cough is nonproductive. No complaints of chest pain, she is on room air, with a pulse ox of 90%, she is afebrile, she is on combination of amoxicillin, Mucinex, cough suppressants, IV steroids. No new labs today, patient has been afebrile. Patient is asking about a bronchoscopy with BAL. Objective - Vital Signs Vital signs: Vital Signs Temp 97.5 F L 02/18/19 11:53 Pulse 74 02/18/19 11:53 Resp 17 02/18/19 11:53 BP 105/57 02/18/19 11:53 Pulse Ox 99 02/18/19 11:53 Intake & Output 02/17/19 02/18/19 02/18/19 18:59 06:59 18:59 Intake Total 240 540 600 Output Total 2 Balance 238 540 600 Intake: Oral 240 540 600 Output: Urine 2 Other: Voiding Method Toilet Toilet # Voids 7 1 3 - Exam GENERAL EXAM: Alert, very pleasant, 48-year-old white female, on room air pulse ox of 95% comfortable in no apparent distress. HEAD: Normocephalic/atraumatic. EYES: Normal reaction of pupils, equal size. Conjunctiva pink, sclera white. NOSE: Clear with pink turbinates. THROAT: No erythema or exudates. NECK: No masses, no JVD, no thyroid enlargement, no adenopathy. CHEST: No chest wall deformity. Symmetrical expansion. LUNGS: Equal air entry with diminished breath sounds, and wheezes on the right CVS: Regular rate and rhythm, normal S1 and S2, no gallops, no murmurs, no rubs ABDOMEN: Soft, nontender. No hepatosplenomegaly, normal bowel sounds, no guarding or rigidity. EXTREMITIES: No clubbing, no edema, no cyanosis, 2+ pulses and upper and lower extremities. MUSCULOSKELETAL: Muscle strength and tone normal. SPINE: No scoliosis or deformity SKIN: No rashes CENTRAL NERVOUS SYSTEM: Alert and oriented -3. No focal deficits, tone is normal in all 4 extremities. PSYCHIATRIC: Alert and oriented -3. Appropriate affect. Intact judgment and insight. - Labs CBC & Chem 7: 02/16/19 11:25 02/16/19 11:25 Labs: Microbiology - Last 24 Hours (Table) 02/16/19 11:25 Blood Culture - Preliminary Blood No Growth after 48 hours Assessment and Plan Plan: Assessment: #1. Acute exacerbation of chronic obstructive pulmonary disease/asthmatic bronchitis, with failure of outpatient treatment #2. History of carcinoid tumor of the left lung status post left pneumonectomy more than 10 years ago, patient follows with Dr. Townsend #3. Migraine cephalgia #4. Former smoker #5. Anxiety #6. History of MRSA infection Plan: Continue current medical treatment, continue Augmentin, nebulized bronchodila tors, IV steroids, nothing by mouth after midnight for bronchoscopy with BAL by Dr. Pozo at 11:30. Will follow I performed a history & physical examination of the patient and discussed their management with my nurse practitioner, Ngoc Parker. I reviewed the nurse practitioner's note and agree with the documented findings and plan of care. Lung sounds are positive for diffuse expiratory wheezes. The findings and the impression was discussed with the patient. I attest to the documentation by the nurse practitioner. Time with Patient: Less than 30
[2019-02-18] MEDS: guaiFENesin-Coden 100-10MG/5ML 10 ML CUP PO PRN ×2 (15:17→21:49)
[2019-02-18] MEDS: methylPREDNISolone SOD SUCCI 40 MG/ML 1 ML VIAL IV SCH ×2 (15:21→23:26)
--- NOTE | 2019-02-18 15:55 | P.PN ---
Subjective Principal diagnosis: Shortness of breath This is a 48-year-old female who has history of left-sided pneumonectomy for carcinoid tumor, COPD, chronic bronchitis history of smoking who was admitted with shortness of breath and cough productive of mucoid sputum. Patient apparently got sick 2-3 weeks ago with respiratory illness after some sick contacts in influenza vaccinations. She's been having since then protracted course of illness with initial improvement and subsequent worsening. She was treated here with antibiotics nebulizers and steroids and clinically it started slowly to improve. CT of the chest showed stable changes. Patient's plan for bronchoscopy with pulmonary service tomorrow Objective - Vital Signs Vital signs: Vital Signs Temp 97.5 F L 02/18/19 11:53 Pulse 74 02/18/19 11:53 Resp 17 02/18/19 11:53 BP 105/57 02/18/19 11:53 Pulse Ox 99 02/18/19 11:53 Intake & Output 02/17/19 02/18/19 02/18/19 18:59 06:59 18:59 Intake Total 240 540 600 Output Total 2 Balance 238 540 600 Intake: Oral 240 540 600 Output: Urine 2 Other: Voiding Method Toilet Toilet # Voids 7 1 3 - Constitutional General appearance: Present: cooperative, no acute distress - EENT ENT: Present: normal oropharynx - Respiratory Respiratory: bilateral: diminished, rhonchi, wheezing - Cardiovascular Rhythm: regular Heart sounds: normal: S1, S2 - Labs CBC & Chem 7: 02/16/19 11:25 02/16/19 11:25 Labs: Microbiology - Last 24 Hours (Table) 02/16/19 11:25 Blood Culture - Preliminary Blood No Growth after 48 hours Assessment and Plan Assessment: 1. COPD exacerbation Continue current management Pulmonary following 2. History of left-sided pneumonectomy due to carcinoid tumor Plan for bronchoscopy/BAL tomorrow
[2019-02-18 21:39] VITALS: RESP 16
[2019-02-19] MEDS: IPRATROPIUM-ALBUTEROL 3 ML NEB INHALATION SCH ×7 (01:14→22:38)
[2019-02-19] MEDS: SODIUM CHLORIDE 0.9% 1,000 ML IV SCH (04:49)
[2019-02-19 08:22] LABS: HCT 35.1 % (34.0-46.0); HGB 12.3 gm/dL (11.4-16.0); MCH 34.1 pg (25.0-35.0); MCV 97.3 fL (80.0-100.0); Mean Platelet Volume 7.8; Platelet Count 219 k/uL (150-450); RBC 3.61 m/uL (3.80-5.40); RDW 13.1 % (11.5-15.5); WBC 15.9 k/uL (3.8-10.6)
[2019-02-19 08:33] LABS: African American GFR (CKD) >90 (>60 ml/min/1.73 sqM); Anion Gap 7 mmol/L; Blood Urea Nitrogen 16 mg/dL (7-17); Calcium 9.6 mg/dL (8.4-10.2); Carbon Dioxide 29 mmol/L (22-30); Chloride 106 mmol/L (98-107); Glucose 113 mg/dL (74-99); Non-African American GFR(CKD) >90 (>60 ml/min/1.73 sqM); Potassium 4.4 mmol/L (3.5-5.1); Sodium 142 mmol/L (137-145)
[2019-02-19] MEDS: guaiFENesin-Coden 100-10MG/5ML 10 ML CUP PO PRN ×2 (08:48→21:45)
[2019-02-19] MEDS: methylPREDNISolone SOD SUCCI 40 MG/ML 1 ML VIAL IV SCH (08:48)
[2019-02-19] MEDS: guaiFENesin 600 MG TABLET.ER PO SCH ×2 (08:49→21:44)
[2019-02-19] MEDS: NAPROXEN 250 MG TAB PO SCH ×2 (08:49→21:45)
[2019-02-19] MEDS: AMOXIC-POT CLAV 875-125MG 1 EACH TAB PO SCH ×2 (08:49→21:44)
[2019-02-19] MEDS: IBUPROFEN 800 MG TAB PO PRN (08:52)
[2019-02-19] MEDS: FORMOTEROL FUMARATE 20 MCG/2 ML NEBU INHALATION SCH ×2 (09:14→22:13)
[2019-02-19] MEDS: SYMBICORT 160-4.5 MCG INHALER INHALATION SCH ×2 (09:14→22:13)
[2019-02-19] MEDS ORDERED: MIDAZOLAM 2 MG/2 ML VIAL ONE (11:37)
[2019-02-19] MEDS ORDERED: KETAMINE 10 MG/ML 20 ML VIAL ONE (11:37)
[2019-02-19] MEDS ORDERED: GLYCOPYRROLATE 0.2 MG/ML 2 ML VIAL ONE (11:37)
[2019-02-19] MEDS ORDERED: fentaNYL (PF) 50 MCG/ML 2 ML AMP ONE (11:37)
[2019-02-19] MEDS ORDERED: LIDOCAINE 1% INJ 10MG/ML (20 ML MDV) ONE (11:37)
[2019-02-19] MEDS ORDERED: PROPOFOL 10 MG/ML 20 ML VIAL IV ONE (11:37)
[2019-02-19] MEDS ORDERED: LIDOCAINE 2% INJ 20 MG/ML INTRATRACH ONE (11:52)
[2019-02-19] MEDS ORDERED: IV FLUID CONTINUATION 1,000 ML IV ONE (11:55)
--- NOTE | 2019-02-19 12:52 | P.PN ---
Subjective Progress Note Date: 02/19/19 Principal diagnosis: Acute exacerbation of chronic obstructive pulmonary disease This is a 48-year-old white female patient of Dr. Heath, with past medical history of left pneumonectomy more than continues to go for history of carcinoid tumor of the lung, COPD/asthmatic bronchitis, patient is maintained on Proventil, Symbicort and DuoNeb, former smoker, who follows with Dr. Wilson in the pulmonary clinic. Patient presented today emergency department on 02/16/2019 with complaints of cough, and patient at times is able to clear small amount of green colored sputum, for the most part she is not able to clear any sputum, wheezing. Denied any fever or chills, patient had recently received a flu vaccine 3 weeks ago, and she states shortly after that she started getting sick, and she saw Dr. Heath in the office and was treated with IM steroids, steroid taper and antibiotics in the form of Zithromax. After she completed her treatment she was seemingly getting better however in the last few days she is feeling worse again. Feels congested, short of breath and wheezy. Her has also been sick with a prolonged upper respiratory infection and sinusitis. Chest x-ray was completed in the emergency department showing chronic changes of left pneumonectomy, and increased aeration of the left hemithorax. The right lung is clear. Labs have been reviewed, CBC, coagulation profile, CMP were all within normal limits, troponin was negative 1, proBNP was 159. Patient states she had been checked for the influenza and strep throat and Dr. Heath's office and everything was negative. She is afebrile, she is 95% on room air, hemodynamically stable, she's been started on Augmentin, Mucinex, cough syrup, nebulized treatments On 02/18/2019 patient seen in follow-up. No significant improvement, still wheezy, still coughing, occasionally able to bring up some sputum, for the most part her cough is nonproductive. No complaints of chest pain, she is on room air, with a pulse ox of 90%, she is afebrile, she is on combination of amoxicillin, Mucinex, cough suppressants, IV steroids. No new labs today, patient has been afebrile. Patient is asking about a bronchoscopy with BAL. The patient is seen today 02/19/2019 in follow-up in the bronchoscopy suite. She is still having shortness breath, wheezing and cough and congestion. She is maintaining O2 saturations in the upper 90s on room air. She's been afebrile. Hemodynamically stable. Blood culture reveals no growth. White count 15.9. Hemoglobin 12.3. Creatinine 0.65. She is continued on DuoNeb inhalations, Symbicort, Mucinex, Robitussin, prednisone. The plan is for bronchoscopy with BAL with Dr. Pozo today. Objective - Vital Signs Vital signs: Vital Signs Temp 97.8 F 02/19/19 04:17 Pulse 117 H 02/19/19 12:21 Resp 16 02/19/19 04:17 BP 126/80 02/19/19 12:21 Pulse Ox 96 02/19/19 12:21 Intake & Output 02/18/19 02/19/19 02/19/19 18:59 06:59 18:59 Intake Total 600 300 Output Total 2 Balance 600 -2 300 Intake: IV 300 Oral 600 Output: Urine 2 Other: Voiding Method Toilet # Voids 3 1 - Exam GENERAL EXAM: Alert, pleasant, 48-year-old female patient, on room air pulse ox of 99% comfortable in no apparent distress. HEAD: Normocephalic/atraumatic. EYES: Normal reaction of pupils, equal size. Conjunctiva pink, sclera white. NOSE: Clear with pink turbinates. THROAT: No erythema or exudates. NECK: No masses, no JVD, no thyroid enlargement, no adenopathy. CHEST: No chest wall deformity. Symmetrical expansion. LUNGS: Equal air entry with diminished breath sounds, and wheezes on the right CVS: Regular rate and rhythm, normal S1 and S2, no gallops, no murmurs, no rubs ABDOMEN: Soft, nontender. No hepatosplenomegaly, normal bowel sounds, no guarding or rigidity. EXTREMITIES: No clubbing, no edema, no cyanosis, 2+ pulses and upper and lower extremities. MUSCULOSKELETAL: Muscle strength and tone normal. SPINE: No scoliosis or deformity SKIN: No rashes CENTRAL NERVOUS SYSTEM: No focal deficits, tone is normal in all 4 extremities. PSYCHIATRIC: Alert and oriented -3. Appropriate affect. Intact judgment and insight. - Labs CBC & Chem 7: 02/19/19 08:02 02/19/19 08:02 Labs: Abnormal Lab Results - Last 24 Hours (Table) 02/19/19 02/19/19 Range/Units 08:02 08:02 WBC 15.9 H (3.8-10.6) k/uL RBC 3.61 L (3.80-5.40) m/uL Glucose 113 H (74-99) mg/dL Microbiology - Last 24 Hours (Table) 02/16/19 11:25 Blood Culture - Preliminary Blood No Growth after 48 hours Assessment and Plan Assessment: Assessment: #1. Acute exacerbation of chronic obstructive pulmonary disease/asthmatic bronchitis, with failure of outpatient treatment #2. History of carcinoid tumor of the left lung status post left pneumonectomy more than 10 years ago, patient follows with Dr. Townsend #3. Migraine cephalgia #4. Former smoker #5. Anxiety #6. History of MRSA infection Plan: The patient was seen and evaluated by Dr. Pozo. He did perform a bronchoscopy and BAL of the right middle lobe. Evidence of previous left pneumonectomy. Cultures are pending. She is currently on Augmentin, continue with current treatment plan. We will continue to follow and make further recommendations based on her clinical status. I, the cosigning physician, performed a history & physical examination of the patient. Lungs sounds few scattered rhonchi, wheezes in the right lung. Maintaining good O2 saturations in the 90s on room air. I discussed the assessment and plan of care with my nurse practitioner, Kia Rodriguez. I attest to the above note as dictated by her.
--- NOTE | 2019-02-19 12:54 | PCN ---
PROCEDURE NOTE PROCEDURE: Bronchoscopy, airway examination, therapeutic lavage, BAL. PREOPERATIVE DIAGNOSIS: Acute purulent tracheobronchitis, bronchospasm. POSTOP DIAGNOSIS: Acute purulent tracheobronchitis, bronchospasm. BRICK PICKER: Dr. Pozo, Dr. Rodriguez and Carolina Parker. The nurse instructional technology teacher with Alessandra Pringle CRNA, the anesthesiologist was Dr. Lyle. The patient's procedure took place in room #1. There was informed consent. There was universal timeout. After the patient was adequately sedated and being fully monitored, the bronchoscope was inserted the right nostril. It passed through the right nasopharynx into the oropharynx. The hypopharynx was identified and topicalized. The hypopharyngeal structures including anterior commissure, true cords, false cords, arytenoids, piriform sinuses, right and left vallecula, and epiglottis all appeared normal. The glottic opening was topicalized. The bronchoscope was pushed through the glottic opening into the trachea. Trachea appeared normal. The tracheal sejal was sharp. The right and left mainstem were topicalized. On the left side, the left mainstem ended in a blind pouch. This is where the previous pneumonectomy took place. On the right side, the right upper lobe and its 3 segments, right middle lobe and its 2 segments, right lower lobe and its 5 segments all appeared normal, although the anatomy was somewhat contorted because of the previous pneumonectomy. The airways were inflamed. There was erythema and hyperemia of the airways. There were thick secretions noted throughout. There was no dominant mass or tumor. The secretions were purulent and thick. They were difficult to suction. The bronchoscope was wedged into the right middle lobe. The BAL took place. The patient tolerated the procedure and 30 mL was recovered. Additional secretions were suctioned with saline. There was no immediate complication. The patient will be recovered. The bronchoscope was withdrawn. The patient was stable throughout the procedure. The specimens were sent to the laboratory for analysis. MMODL / IJN: [id number] /
[2019-02-19] MEDS: predniSONE 20 MG TAB PO SCH (13:12)
[2019-02-19] MEDS: LORATADINE-PSEUDOEPH 5-120 MG 1 EACH TAB.ER.12H PO SCH ×2 (13:12→21:54)
[2019-02-19 14:58] LABS: Appearance,BF Hazy; Nucleated Cells, Body Fluid 20 /uL; RBC, Body Fluid 35 /uL
[2019-02-19 15:19] LABS: Mononuclear WBC,Body Fluid 23 %; Polynuclear WBC,Body Fluid 76 %; Total Cells Counted,Body Fluid 100
--- NOTE | 2019-02-19 23:37 | PN ---
PROGRESS NOTE DATE OF SERVICE: 02/19/2019. PRESENTING COMPLAINT: Short of breath. INTERVAL HISTORY: This pleasant 48-year-old patient of Dr. Andrea Heath was admitted with shortness of breath. The patient is admitted with acute COPD exacerbation having failed outpatient treatment. The patient has a history of carcinoid tumor of the left lung and underwent a left pneumonectomy over [address] Townsend. Today-still a bit short of breath, minimal sputum, though breathing is better. This afternoon pending a bronchoscopy for lavage. REVIEW OF SYSTEMS: Done for constitutional, cardiovascular, GI, pulmonary; relevant findings as above. CURRENT MEDICATIONS: Reviewed that include bronchodilators, Augmentin and oral prednisone. Was on IV steroids before that. PHYSICAL EXAMINATION: Temperature 97.8, pulse 78, respiration 16, blood pressure 109/56, pulse ox 99% on room air. GENERAL APPEARANCE: Sitting up. Not in distress. EYES: Pupils equal. Conjunctivae normal. NECK: JVD not raised. Mass not palpable. RESPIRATORY: Effort increased. LUNGS: Decreased breath sounds. CARDIOVASCULAR: First and second sounds normal. No edema. ABDOMEN: Soft, nontender. Liver and spleen not palpable. PSYCHIATRY: Alert and oriented times three. Mood and affect normal. INVESTIGATIONS: White count 15.9, hemoglobin 12.3 potassium 4.4. Creatinine is normal. ASSESSMENT: 1. Acute chronic obstructive pulmonary disease exacerbation in an ex-smoker. 2. Left pneumonectomy for prior carcinoid tumor. 3. Leukocytosis from steroids. 4. Acute tracheobronchitis. PLAN: Continue current medication and treatment plan. Switched to oral steroids from IV steroids today. The patient later this afternoon did go down for bronchoscopy, thick secretions were taken out. Cultures of course are pending. Care was discussed with the patient. Further plan as per Pulmonary. MMODL / IJN: [id number] /
[2019-02-20] MEDS: IPRATROPIUM-ALBUTEROL 3 ML NEB INHALATION SCH ×3 (02:02→12:49)
[2019-02-20] MEDS: SODIUM CHLORIDE 0.9% 1,000 ML IV SCH ×3 (05:30→10:36)
[2019-02-20 06:23] VITALS: BP 121/74; TEMP 97.9
[2019-02-20] MEDS: FORMOTEROL FUMARATE 20 MCG/2 ML NEBU INHALATION SCH (08:19)
[2019-02-20] MEDS: SYMBICORT 160-4.5 MCG INHALER INHALATION SCH (08:19)
[2019-02-20 08:40] VITALS: PULSE 60
[2019-02-20] MEDS: IBUPROFEN 800 MG TAB PO PRN (10:30)
[2019-02-20] MEDS: guaiFENesin-Coden 100-10MG/5ML 10 ML CUP PO PRN ×2 (10:30→10:36)
[2019-02-20] MEDS: guaiFENesin 600 MG TABLET.ER PO SCH (10:31)
[2019-02-20] MEDS: predniSONE 20 MG TAB PO SCH (10:31)
[2019-02-20] MEDS: AMOXIC-POT CLAV 875-125MG 1 EACH TAB PO SCH (10:31)
[2019-02-20] MEDS: LORATADINE-PSEUDOEPH 5-120 MG 1 EACH TAB.ER.12H PO SCH (10:34)
[2019-02-20] MEDS: NAPROXEN 250 MG TAB PO SCH (10:35)
--- NOTE | 2019-02-20 13:44 | P.PN ---
Subjective Progress Note Date: 02/20/19 Principal diagnosis: Acute exacerbation of chronic obstructive pulmonary disease This is a 48-year-old white female patient of Dr. Heath, with past medical history of left pneumonectomy more than continues to go for history of carcinoid tumor of the lung, COPD/asthmatic bronchitis, patient is maintained on Proventil, Symbicort and DuoNeb, former smoker, who follows with Dr. Wilson in the pulmonary clinic. Patient presented today emergency department on 02/16/2019 with complaints of cough, and patient at times is able to clear small amount of green colored sputum, for the most part she is not able to clear any sputum, wheezing. Denied any fever or chills, patient had recently received a flu vaccine 3 weeks ago, and she states shortly after that she started getting sick, and she saw Dr. Heath in the office and was treated with IM steroids, steroid taper and antibiotics in the form of Zithromax. After she completed her treatment she was seemingly getting better however in the last few days she is feeling worse again. Feels congested, short of breath and wheezy. Her has also been sick with a prolonged upper respiratory infection and sinusitis. Chest x-ray was completed in the emergency department showing chronic changes of left pneumonectomy, and increased aeration of the left hemithorax. The right lung is clear. Labs have been reviewed, CBC, coagulation profile, CMP were all within normal limits, troponin was negative 1, proBNP was 159. Patient states she had been checked for the influenza and strep throat and Dr. Heath's office and everything was negative. She is afebrile, she is 95% on room air, hemodynamically stable, she's been started on Augmentin, Mucinex, cough syrup, nebulized treatments On 02/18/2019 patient seen in follow-up. No significant improvement, still wheezy, still coughing, occasionally able to bring up some sputum, for the most part her cough is nonproductive. No complaints of chest pain, she is on room air, with a pulse ox of 90%, she is afebrile, she is on combination of amoxicillin, Mucinex, cough suppressants, IV steroids. No new labs today, patient has been afebrile. Patient is asking about a bronchoscopy with BAL. The patient is seen today 02/19/2019 in follow-up in the bronchoscopy suite. She is still having shortness breath, wheezing and cough and congestion. She is maintaining O2 saturations in the upper 90s on room air. She's been afebrile. Hemodynamically stable. Blood culture reveals no growth. White count 15.9. Hemoglobin 12.3. Creatinine 0.65. She is continued on DuoNeb inhalations, Symbicort, Mucinex, Robitussin, prednisone. The plan is for bronchoscopy with BAL with Dr. Pozo today. The patient is seen today 02/20/2019 in follow-up on the regular medical floor. She is currently sitting up at the bedside. Awake and alert in no acute distress. Her breathing is nearly back to her baseline. Improved today compared to yesterday and she did undergo bronchoscopy with BAL. Cultures and cytology pending. She is continued on DuoNeb inhalations, Symbicort, prednisone. Antibiotics in the form of Augmentin. Objective - Vital Signs Vital signs: Vital Signs Temp 97.9 F 02/20/19 05:00 Pulse 60 02/20/19 08:39 Resp 16 02/20/19 05:00 BP 121/74 02/20/19 05:00 Pulse Ox 96 02/20/19 05:00 Intake & Output 02/19/19 02/20/19 02/20/19 18:59 06:59 18:59 Intake Total 500 Balance 500 Intake: IV 500 Sodium Chloride 0.9% 1, 200 000 ml @ 100 mls/hr IV . Q10H [facility] Rx#:[id number] Other: Voiding Method Toilet # Voids 1 - Exam GENERAL EXAM: Alert, pleasant, 48-year-old female patient, on room air pulse ox of 96% comfortable in no apparent distress. HEAD: Normocephalic/atraumatic. EYES: Normal reaction of pupils, equal size. Conjunctiva pink, sclera white. NOSE: Clear with pink turbinates. THROAT: No erythema or exudates. NECK: No masses, no JVD, no thyroid enlargement, no adenopathy. CHEST: No chest wall deformity. Symmetrical expansion. LUNGS: Equal air entry with diminished breath sounds, and end expiratory wheeze on the right CVS: Regular rate and rhythm, normal S1 and S2, no gallops, no murmurs, no rubs ABDOMEN: Soft, nontender. No hepatosplenomegaly, normal bowel sounds, no guarding or rigidity. EXTREMITIES: No clubbing, no edema, no cyanosis, 2+ pulses and upper and lower extremities. MUSCULOSKELETAL: Muscle strength and tone normal. SPINE: No scoliosis or deformity SKIN: No rashes CENTRAL NERVOUS SYSTEM: No focal deficits, tone is normal in all 4 extremities. PSYCHIATRIC: Alert and oriented -3. Appropriate affect. Intact judgment and insight. - Labs CBC & Chem 7: 02/19/19 08:02 02/19/19 08:02 Labs: Microbiology - Last 24 Hours (Table) 02/19/19 11:00 Acid Fast Bacilli Smear - Final Bronchial Washings - Right Acid Fast Bacilli Culture - Preliminary 02/19/19 11:00 Gram Stain - Preliminary Bronchial Washings - Right Bronchial Washings Culture - Preliminary 02/19/19 11:00 Fungal Culture - Preliminary Bronchial Washings - Right 02/16/19 11:25 Blood Culture - Preliminary Blood No Growth after 72 hours Assessment and Plan Assessment: Assessment: #1. Acute exacerbation of chronic obstructive pulmonary disease/asthmatic bronchitis, with failure of outpatient treatment. Status post bronchoscopy with BAL on 02/19/2019. #2. History of carcinoid tumor of the left lung status post left pneumonectomy more than 10 years ago, patient follows with Dr. Townsend #3. Migraine cephalgia #4. Former smoker #5. Anxiety #6. History of MRSA infection Plan: The patient was seen and evaluated by Dr. Pozo. She is currently stable from the pulmonary standpoint. Nearly back to her baseline. She is cleared for discharge. She'll follow-up in our office in 1-2 weeks' time. Continue course of prednisone taper and antibiotics in the form of Augmentin. She is encouraged to call sooner with any recurrence of symptoms or any other questions or concerns. I, the cosigning physician, performed a history & physical examination of the patient. Lungs sounds few scattered rhonchi, wheezes in the right lung. Maintaining good O2 saturations in the 90s on room air. I discussed the assessment and plan of care with my nurse practitioner, Kia Rodriguez. I attest to the above note as dictated by her.
== END 2019-02-20 13:35 | disposition home or self-care (01) | DRG 192 ==
LOC: EC 10:30 → 3NMEDONC 14:08
PROVIDERS: ADMIT Hospitalist; ATTEND Hospitalist
PROC: 0B9D8ZX Drainage of Right Middle Lung Lobe, Via Natural or Artificial Opening Endoscopic, Diagnostic (ICD-10-PCS; principal; 2019-02-19 11:25)
DX: J44.1 Chronic obstructive pulmonary disease with (acute) exacerbation (principal); D72.829 Elevated white blood cell count, unspecified; F41.9 Anxiety disorder, unspecified; G43.909 Migraine, unspecified, not intractable, without status migrainosus; J20.9 Acute bronchitis, unspecified; T38.0X5A Adverse effect of glucocorticoids and synthetic analogues, initial encounter; J45.909 Unspecified asthma, uncomplicated; J44.0 Chronic obstructive pulmonary disease with (acute) lower respiratory infection; Z90.2 Acquired absence of lung [part of]; Z85.118 Personal history of other malignant neoplasm of bronchus and lung; Z87.891 Personal history of nicotine dependence; Z85.828 Personal history of other malignant neoplasm of skin; Z86.14 Personal history of Methicillin resistant Staphylococcus aureus infection; Z79.51 Long term (current) use of inhaled steroids; Z79.899 Other long term (current) drug therapy; Z88.8 Allergy status to other drugs, medicaments and biological substances; Z91.048 Other nonmedicinal substance allergy status
CPT/HCPCS: 31624; 36415; 71046; 71260; 80048; 80053; 82550; 83735; 83880; 84484; 85025; 85027; 85610; 85730; 87040; 87070; 87077; 87102; 87116; 87186; 87205; 87206; 87252; 87496; 87498; 87502; 87529; 87634; 87798; 88108; 88305; 89050; 93005; 94640; 94760; 96361; 96374; 99291

== ENCOUNTER → 2019-07-12 | Outpatient (CLI) | payer MEDICAID | END | disposition home or self-care (01) | LOC: LABWHC1 07:49 | PROVIDERS: ATTEND Pediatrics Pediatric Infectious Diseases | DX: U07.1 COVID-19 (principal) | CPT/HCPCS: 87635 ==

== ENCOUNTER → 2020-01-23 | Outpatient (CLI) | payer MEDICAID ==
--- NOTE | 2020-01-27 09:18 | MM ---
Reason for exam: screening (asymptomatic). Last mammogram was performed 3 years and 9 months ago. History: Patient has history of high-risk lesion on a previous biopsy at age 39. Family history of breast cancer in maternal aunt at age 50. High risk left breast needle localization of the left breast, May 09, 2011. High risk left breast needle localization of the left breast, May 09, 2011. High risk left mammotome panel of the left breast, April 26, 2011. High risk left mammotome panel of the left breast, April 26, 2011. Physical Findings: A clinical breast exam by your physician is recommended on an annual basis and results should be correlated with mammographic findings. MG 3D Screening Mammo W/Cad Bilateral CC and MLO view(s) were taken. Prior study comparison: April 14, 2016, bilateral MG 3d screening mammo w/cad. The breast tissue is heterogeneously dense. This may lower the sensitivity of mammography. There is chronic nodularity bilaterally. No significant changes when compared with prior studies. ASSESSMENT: Benign, BI-RAD 2 RECOMMENDATION: Routine screening mammogram of both breasts in 1 year.
== END | disposition home or self-care (01) ==
LOC: RADMAMWWP 15:43
PROVIDERS: ATTEND Family Medicine
DX: Z12.31 Encounter for screening mammogram for malignant neoplasm of breast (principal)
CPT/HCPCS: 77063; 77067

== ENCOUNTER → 2021-02-19 | Outpatient (CLI) | payer OTHER ==
--- NOTE | 2021-02-23 12:00 | MM ---
Reason for exam: screening (asymptomatic). Last mammogram was performed 1 year and 1 month ago. History: Patient has history of high-risk lesion on a previous biopsy at age 39. Family history of breast cancer in maternal aunt at age 50. High risk left breast needle localization of the left breast, May 09, 2011. High risk left breast needle localization of the left breast, May 09, 2011. High risk left mammotome panel of the left breast, April 26, 2011. High risk left mammotome panel of the left breast, April 26, 2011. Physical Findings: A clinical breast exam by your physician is recommended on an annual basis and results should be correlated with mammographic findings. MG 3D Screening Mammo W/Cad Bilateral CC and MLO view(s) were taken. Prior study comparison: January 23, 2020, bilateral MG 3d screening mammo w/cad. April 14, 2016, bilateral MG 3d screening mammo w/cad. The breast tissue is heterogeneously dense. This may lower the sensitivity of mammography. There is chronic nodularity bilaterally. No significant changes when compared with prior studies. ASSESSMENT: Benign, BI-RAD 2 RECOMMENDATION: Routine screening mammogram of both breasts in 1 year.
== END | disposition home or self-care (01) ==
LOC: RADMAMWWP 16:14
PROVIDERS: ATTEND Family Medicine
DX: Z12.31 Encounter for screening mammogram for malignant neoplasm of breast (principal); Z80.3 Family history of malignant neoplasm of breast; R92.8 Other abnormal and inconclusive findings on diagnostic imaging of breast
CPT/HCPCS: 77063; 77067

== ENCOUNTER → 2022-03-10 | Outpatient (CLI) | payer OTHER ==
--- NOTE | 2022-03-13 13:42 | MM ---
Reason for Exam: Screening (asymptomatic). Last screening mammogram was performed 12 month(s) ago. Patient History: Menarche at age 10. First Full-Term at age 18. Perimenopausal. 05/09/2011, High risk Excisional Biopsy on the left side. 05/09/2011, High risk Excisional Biopsy on the left side. 04/26/2011, High risk Core Biopsy on the left side. 04/26/2011, High risk Core Biopsy on the left side. Maternal aunt had breast cancer, age 50. Risk Values: Tamika 5 year model risk: 1.5%. NCI Lifetime model risk: 11.3%. Prior Study Comparison: 04/14/2016 Bilateral Screening Mammogram, [facility]. 01/23/2020 Bilateral Screening Mammogram, [facility]. 02/19/2021 Bilateral Screening Mammogram, [facility]. Tissue Density: There are scattered fibroglandular densities. Findings: Analyzed By CAD. Chronic nodularity in the left breast. A couple of benign oil cyst calcifications on the right. No significant change from prior exams. Overall Assessment: Benign, BI-RAD 2 Management: Screening Mammogram of both breasts in 1 year. 1. Patient should continue monthly self breast exams. 2. A clinical breast exam by your physician is recommended on an annual basis. 3. This exam should not preclude additional follow-up of suspicious palpable abnormalities. Electronically signed and approved by: Lenny Jones M.D. Radiologist
== END | disposition home or self-care (01) ==
LOC: RADMAMWWP 16:48
PROVIDERS: ATTEND Family Medicine
DX: Z12.31 Encounter for screening mammogram for malignant neoplasm of breast (principal); Z80.3 Family history of malignant neoplasm of breast
CPT/HCPCS: 77063; 77067

== ENCOUNTER → 2022-12-29 | Outpatient (CLI) | payer BC, OTHER ==
--- NOTE | 2022-12-29 08:15 | CT ---
EXAMINATION TYPE: CT chest wo con DATE OF EXAM: 12/29/2022 COMPARISON: 02/17/2019 HISTORY: lung CA CT DLP: 146.[address] of the chest was performed with lung and mediastinal window settings submitted. The la ck of contrast limits evaluation of the vascular, mediastinal and parenchymal structures including th e upper abdomen. LUNGS: Postsurgical changes of left-sided pneumonectomy. Hyperinflation of the right lung. No evidenc e for recurrent or residual mass. MEDIASTINUM/JAMES: Left-sided positioning of the mediastinal structures. Thoracic aorta is of normal caliber with limited evaluation given lack of contrast. The heart is not enlarged. No evidence for mediastinal mass. No lymph nodes greater than 1cm. UPPER ABDOMEN: No significant abnormality is seen. OTHER: No significant other abnormality. IMPRESSION: 1. Stable postoperative changes of left-sided pneumonectomy with hyperinflation of the right lung. N o evidence of residual mass.
== END | disposition home or self-care (01) ==
LOC: RADCTMAIN 06:45
PROVIDERS: ATTEND Family Medicine
DX: C34.91 Malignant neoplasm of unspecified part of right bronchus or lung (principal); Z98.890 Other specified postprocedural states
CPT/HCPCS: 71250

== ENCOUNTER → 2023-03-10 | Outpatient (CLI) | payer OTHER ==
--- NOTE | 2023-03-10 14:04 | XR ---
EXAMINATION TYPE: XR forearm LT, XR wrist complete LT DATE OF EXAM: 03/10/2023 1:43 PM CLINICAL INDICATION:Female, 52 years old with history of S50.12XA L forearm contusion; [facility] COMPARISON: None TECHNIQUE: XR forearm LT, XR wrist complete LT; forearm was examined in AP and lateral projections. FINDINGS: No acute osseous pathology, soft tissue swelling or joint dislocations are seen. IMPRESSION: No evidence of acute fracture.
== END | disposition home or self-care (01) ==
LOC: RADXRMAIN 13:23
PROVIDERS: ATTEND Emergency Medicine
DX: S50.12XA Contusion of left forearm, initial encounter (principal); S60.212A Contusion of left wrist, initial encounter; X58.XXXA Exposure to other specified factors, initial encounter

== ENCOUNTER → 2023-03-14 | Outpatient (CLI) | payer OTHER, BC ==
--- NOTE | 2023-03-15 15:08 | MM ---
Reason for Exam: Screening (asymptomatic). Last mammogram was performed 1 year(s) and 1 month(s) ago. Patient History: Menarche at age 10. First Full-Term at age 18. Perimenopausal. 05/09/2011, High risk Excisional Biopsy on the left side. 05/09/2011, High risk Excisional Biopsy on the left side. 04/26/2011, High risk Core Biopsy on the left side. 04/26/2011, High risk Core Biopsy on the left side. Maternal aunt had breast cancer, age 50. Risk Values: Tamika 5 year model risk: 1.5%. NCI Lifetime model risk: 11.1%. Prior Study Comparison: 01/23/2020 Bilateral Screening Mammogram, [facility]. 02/19/2021 Bilateral Screening Mammogram, [facility]. 03/10/2022 Bilateral MG 3D screening mammo w/cad, [facility]. Tissue Density: There are scattered fibroglandular densities. Findings: Analyzed By CAD. Asymmetry left breast MLO view measuring 9 mm and 7.8 cm the nipple posterior nipple line. Not definitively seen on prior. Right breast There is no suspicious group of microcalcifications or new suspicious mass. Overall Assessment: Incomplete: need additional imaging evaluation, BI-RAD 0 Management: Diagnostic Breast Ultrasound of the left breast. [facility] will attempt to contact patient to return for supplemental views and ultrasound if indicated. Patient should continue monthly self-breast exams. A clinical breast exam by your physician is recommended on an annual basis. This exam should not preclude additional follow-up of suspicious palpable abnormalities. Note on Tamika scores and lifetime risk: 1. A Tamika score greater than 3% is considered moderate risk. If this is the case, consider specialist referral to assess eligibility for a risk reducing agent. 2. If overall lifetime risk for the development of breast cancer is 20% or higher, the patient may qualify for future screening with alternating mammogram and breast MRI. Electronically signed and approved by: Bart Miranda DO
== END | disposition home or self-care (01) ==
LOC: RADMAMWWP 15:04
PROVIDERS: ATTEND Family Medicine
DX: Z12.31 Encounter for screening mammogram for malignant neoplasm of breast (principal); Z80.3 Family history of malignant neoplasm of breast
CPT/HCPCS: 77063; 77067

== ENCOUNTER → 2023-03-17 | Outpatient (CLI) | payer BC, OTHER ==
--- NOTE | 2023-03-21 08:18 | USB ---
Reason for Exam: Additional evaluation requested from abnormal screening. Patient History: Menarche at age 10. First Full-Term at age 18. Perimenopausal. 05/09/2011, High risk Excisional Biopsy on the left side. 05/09/2011, High risk Excisional Biopsy on the left side. 04/26/2011, High risk Core Biopsy on the left side. 04/26/2011, High risk Core Biopsy on the left side. Maternal aunt had breast cancer, age 50. Risk Values: Tamika 5 year model risk: 1.5%. NCI Lifetime model risk: 11.1%. Technique: Method: Targeted. Prior Study Comparison: 02/19/2021 Bilateral Screening Mammogram, [facility]. 03/10/2022 Bilateral MG 3D screening mammo w/cad, [facility]. 03/14/2023 Bilateral MG 3D screening mammo w/cad, [facility]. Findings: The medial section of the breast of the left breast, the axilla of the left breast and the retroareolar of the left breast were scanned. There is a small anechoic oval cyst measuring 0.2 x 0.7 x 0.2 cm. This area appears correspond to mammographic finding and appears benign. Overall Assessment: Benign, BI-RAD 2 Management: Screening Mammogram of both breasts in 1 year. A clinical breast exam by your physician is recommended on an annual basis and results should be correlated with mammographic findings. This exam should not preclude additional follow-up of suspicious palpable abnormalities. Results were given to the patient verbally at the time of exam. Electronically signed and approved by: Eric Roach D.O. Radiologis
== END | disposition home or self-care (01) ==
LOC: RADUSWWP 13:35
PROVIDERS: ATTEND Family Medicine
DX: N60.02 Solitary cyst of left breast (principal); R92.8 Other abnormal and inconclusive findings on diagnostic imaging of breast; Z80.3 Family history of malignant neoplasm of breast

== ENCOUNTER → 2023-03-22 | Outpatient (CLI) | payer OTHER ==
--- NOTE | 2023-03-22 18:22 | XR ---
EXAMINATION TYPE: XR wrist complete LT DATE OF EXAM: 03/22/2023 COMPARISON: None HISTORY: Pain TECHNIQUE: 4 view left wrist FINDINGS: No acute or subacute fractures evident. Soft tissues are normal. Joint spaces are preserved . If closer evaluation would be of benefit, MRI could be performed. IMPRESSION: 1. No acute osseous abnormality left wrist.
== END | disposition home or self-care (01) ==
LOC: RADXRMAIN 13:05
PROVIDERS: ATTEND Emergency Medicine
DX: S60.212D Contusion of left wrist, subsequent encounter (principal); S50.12XD Contusion of left forearm, subsequent encounter; M25.532 Pain in left wrist

== ENCOUNTER → 2024-01-10 | Outpatient (CLI) | payer BC ==
--- NOTE | 2024-01-12 14:24 | CTL ---
EXAMINATION TYPE: CT Low Dose Lung DATE OF EXAM ORDERED: 01/10/2024 HISTORY: Tobacco use. Lung cancer screening CT DLP: 62.[address] CTDI: 1.7 mGy Automated exposure control for dose reduction was used. SCREENING VISIT: Initial COMPARISON: 12/29/2022 TECHNIQUE: Low dose computed tomography scan was performed through the chest at 1 mm thick sections a nd reconstructed images in the coronal plane at [address] DIAGNOSTIC QUALITY: Satisfactory FINDINGS: LUNG NODULES: None. There is some thickening at the right apex. LUNGS: COPD: Severity: None Fibrosis: Severity: None Lymph nodes: None Other findings: None RIGHT PLEURAL SPACE: Effusion: None Calcification: None Thickening: None Pneumothorax: None LEFT PLEURAL SPACE: There is minimal left pneumonectomy. Mediastinum is shifted to the left. HEART: Other: Ascending thoracic aorta at the level the main pulmonary artery measures 2.7 cm. The main pul monary artery at the bifurcation measures 3.0 cm. Heart Size: Normal Coronary calcification: Pericardial effusion: None OTHER FINDINGS: Upper abdomen: Normal Bony thorax: Normal Supraclavicular region: Normal IMPRESSION: 1. No suspicious nodules. 2. Post left pneumonectomy FOLLOW UP CT CHEST RECOMMENDATION: Follow-up low-dose CT chest one year CT LUNG RAD: Lung-Rad 1 Negative [facility], , 01/12/2024 2:22 PM
== END | disposition home or self-care (01) ==
LOC: RADCTMAIN 16:49
PROVIDERS: ATTEND Family Medicine
DX: Z12.2 Encounter for screening for malignant neoplasm of respiratory organs (principal); Z87.891 Personal history of nicotine dependence; Z90.2 Acquired absence of lung [part of]
CPT/HCPCS: 71271

== ENCOUNTER → 2024-08-29 | Outpatient (CLI) | payer BC ==
--- NOTE | 2024-08-29 11:39 | CT ---
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 TECHNIQUE: Multiple axial images were obtained through the chest. Sagittal and coronal reformats were created for review. MIP was performed on a separate workstation. Contrast used:100 mL of Isovue 300 with IV Contrast (None if empty) Oral contrast used: (None if empty) CT DLP: 295.5 mGycm, Automated exposure control for dose reduction was used. FINDINGS: LUNGS/ PLEURA: Postsurgical changes with left lung removal. Leftward shift of the mediastinum. Hypert rophy changes of the right lung. No focal consolidation, pneumothorax or pleural effusion. AIRWAY: Patent and unremarkable. HEART: Size within normal limits. Pericardial recess fluid noted near the aortic arch series 3 image 18 similar to prior. No significant coronary artery calcifications. MEDIASTINUM: No gross evidence of adenopathy. VASCULATURE: No aortic aneurysm. MUSCULOSKELETAL: Mild disc degeneration changes are present throughout the thoracolumbar spine second keerthi to osteophyte formation and facet joint arthropathy. Stable sclerotic focus likely representing b one [place] and T3 vertebral body SOFT TISSUES/LYMPH NODES: Unremarkable. LOWER NECK: No significant findings. UPPER ABDOMEN: No significant findings. IMPRESSION: No clinically significant pulmonary nodules. Postsurgical changes with left pneumonectomy an leftward shift of the mediastinum. No evidence for ly mphadenopathy. [facility], , 08/29/2024 11:36 AM
== END | disposition home or self-care (01) ==
LOC: RADCTMAIN 11:00
PROVIDERS: ATTEND Family Medicine
DX: R93.89 Abnormal findings on diagnostic imaging of other specified body structures (principal); Z98.890 Other specified postprocedural states; Z87.59 Personal history of other complications of pregnancy, childbirth and the puerperium
CPT/HCPCS: 71270; Q9967